=== PATIENT | female | born 1970 | race Caucasian/White ===

== ENCOUNTER 2024-04-07 16:56 | Emergency (ER) | payer OTHER ==
[~2024-04-07 16:56] MED LIST: BACTRIM DS1 TAB PO; DOXYCYCL HYC100 MG PO; LORTAB 1010 MG PO; ZPAK PO
== END 2024-04-07 17:09 | disposition left against medical advice (07) | DRG 951 ==
LOC: ED 16:56 → LWOBS 17:06
DX: Z53.21 Procedure and treatment not carried out due to patient leaving prior to being seen by health care provider (principal)